=== PATIENT | female | born 1960 | race Asian ===

== ENCOUNTER 2021-01-13 09:07 | Inpatient (IN) | payer OTHER ==
[2021-01-13] MEDS ORDERED: ACETAMINOPHEN 1000 MG/100 ML BAG IVPB ONE (09:57)
[2021-01-13] MEDS ORDERED: SODIUM CHLORIDE 1,000 ML IV STA ×2 (09:57→16:21)
[2021-01-13] MEDS ORDERED: ACETAMINOPHEN INJECTION 100 ML IVPB ONE (10:05)
[2021-01-13 10:48] LABS: BASO % 0.3 % (0-2.0); EOS % 1.1 % (0-4.5); HEMATOCRIT 43.9 % (32.4-45.2); LYMPH % 28.9 % (8-40); MCH 30.8 pg (25.7-33.7); MCHC 34.2 g/dl (32.0-36.0); MEAN PLT VOLUME 8.1 fl (7.5-11.1); MONO % 6.3 % (3.8-10.2); NEUT % 63.4 % (42.8-82.8); PLATELET COUNT 136 10^3/uL (134-434); RBC 4.88 M/mm3 (3.60-5.2); RDW 12.6 % (11.6-15.6); WHITE BLOOD COUNT 7.8 K/mm3 (4.0-10.0)
[2021-01-13 11:07] LABS: ALBUMIN 4.3 g/dl (3.4-5.0); BLOOD UREA NITROGEN 15.4 mg/dL (7-18)
[2021-01-13 11:10] LABS: CREATININE 0.7 mg/dL (0.55-1.3)
[2021-01-13 11:11] LABS: BILIRUBIN,TOTAL 0.7 mg/dL (0.2-1); TOT PROT 7.4 g/dl (6.4-8.2)
[2021-01-13 11:22] LABS: PH,URINE 5.5 (5.0-8.0); URINE APPEARANCE CLEAR; URINE BILIRUBIN NEGATIVE (NEGATIVE); URINE COLOR YELLOW; URINE GLUCOSE (UA) 3+ (NEGATIVE); URINE KETONE NEGATIVE (NEGATIVE); URINE LEUK ESTERASE NEGATIVE (NEGATIVE); URINE NITRITE NEGATIVE (NEGATIVE); URINE PROTEIN NEGATIVE (NEGATIVE); URINE UROBILINOGEN 0.2 mg/dL (0.2-1.0)
[2021-01-13] MEDS ORDERED: morphine CARPU-JECT 4 MG/1 ML DISP.SYRIN IVPUSH ONE (14:46)
[2021-01-13] MEDS ORDERED: morphine SULFATE 4 MG/ML VIAL ONE (15:26)
[2021-01-13 16:37] LABS: INR 1.04 (0.83-1.09); PROTHROMBIN TIME (PATIENT) 11.7 SEC (9.7-13.0)
[2021-01-13 20:11] VITALS: BMI 22.8
[2021-01-13] MEDS ORDERED: PNEUMOC 13-VAL CONJ-DIP CRM/PF 0.5 ML DISP.SYRIN IM ONE (20:13)
[2021-01-13] MEDS: LACTATED RINGERS SOLUTION 1,000 ML IV SCH (20:49)
[2021-01-13] MEDS ORDERED: ROSUVASTATIN CA 20 MG TABLET (FP) PO SCH (22:00)
[2021-01-14] MEDS: PNEUMOCOCCAL 23 VACCINE 0.5 ML VIAL IM ONE ×2 (00:42→09:00)
[2021-01-14] MEDS ORDERED: PT OWN MED DRAWER 7, Y5N ONE (05:03)
[2021-01-14] MEDS ORDERED: CEFAZOLIN 2 GM in DEXTROSE 5%-WATER - 50 ML IVPB SCH (06:00)
[2021-01-14] MEDS: INSULIN SLIDING SCALE (NOVOLOG) 1 VIAL SQ SCH ×3 (06:20→17:20)
[2021-01-14] MEDS: LACTATED RINGERS SOLUTION 1,000 ML IV SCH (06:28)
[2021-01-14] MEDS ORDERED: LEVOTHYROXINE NA 75 MCG TABLET (FP) PO SCH (07:00)
[2021-01-14] MEDS ORDERED: CEFAZOLIN 2 GM in DEXTROSE 5%-WATER - 100 ML IVPB SCH (07:05)
[2021-01-14] MEDS ORDERED: BUPIVACAINE HCL/PF 0.5% (5MG/ML) 10 ML VIAL ONE (08:07)
[2021-01-14 08:49] LABS: HEMOGLOBIN 13.2 GM/dL (10.7-15.3); MCH 31.1 pg (25.7-33.7); MCHC 34.7 g/dl (32.0-36.0); MEAN CELL VOLUME 89.5 fl (80-96); MEAN PLT VOLUME 8.2 fl (7.5-11.1); PLATELET COUNT 110 10^3/uL (134-434); RBC 4.24 M/mm3 (3.60-5.2); RDW 12.4 % (11.6-15.6); WHITE BLOOD COUNT 5.4 K/mm3 (4.0-10.0)
[2021-01-14] MEDS ORDERED: ACETAMINOPHEN 1000 MG/100 ML BAG IVPB PRN ×2 (08:56→12:21)
[2021-01-14] MEDS ORDERED: ACETAMINOPHEN 325 MG TABLET (FP) PO PRN ×2 (08:56→12:21)
[2021-01-14 09:26] LABS: BLOOD UREA NITROGEN 9.9 mg/dL (7-18); CALCIUM 8.8 mg/dL (8.5-10.1); MAGNESIUM 2.1 mg/dL (1.8-2.4)
[2021-01-14 09:28] LABS: PHOSPHOROUS 3.8 mg/dL (2.5-4.9)
[2021-01-14 09:29] LABS: CREATININE 0.6 mg/dL (0.55-1.3)
[2021-01-14 09:30] LABS: BILIRUBIN,TOTAL 0.9 mg/dL (0.2-1); TOT PROT 6.1 g/dl (6.4-8.2)
[2021-01-14 09:33] LABS: ALBUMIN 3.4 g/dl (3.4-5.0)
[2021-01-14] MEDS ORDERED: PNEUMOCOCCAL 23 VACCINE 0.5 ML VIAL IM ONE (10:00)
[2021-01-14] MEDS ORDERED: ROCURONIUM BROMIDE 50 MG/5 ML SYRINGE ONE (10:15)
[2021-01-14] MEDS ORDERED: DEXAMETHASONE SOD PHOSPHATE 4 MG/1 ML VIAL ONE (10:15)
[2021-01-14] MEDS ORDERED: LIDOCAINE HCL/PF 2% SDV 5ML VIAL ONE (10:15)
[2021-01-14] MEDS ORDERED: MIDAZOLAM HCL 2 MG/2 ML SINGLE DOSE VIAL ONE (10:15)
[2021-01-14] MEDS ORDERED: PROPOFOL 20 ML ONE (10:15)
[2021-01-14] MEDS ORDERED: SUCCINYLCHOLINE CHLORIDE 200 MG/10 ML SYRINGE ONE (10:18)
[2021-01-14] MEDS ORDERED: ceFAZolin SODIUM 1 GM VIAL IVPB ONE ×2 (10:50→11:02)
[2021-01-14] MEDS ORDERED: BUPIVACAINE HCL/PF 0.5% (5MG/ML) 10 ML VIAL IJ ONE ×2 (11:28)
[2021-01-14] MEDS ORDERED: KETOROLAC TROMETHAMINE 30 MG/1 ML VIAL ONE (11:40)
[2021-01-14] MEDS ORDERED: NEOSTIGMINE METHYLSULFATE 0.5 MG/ML - 10 ML MDV ONE (11:43)
[2021-01-14] MEDS ORDERED: GLYCOPYRROLATE 0.2 MG/1 ML VIAL ONE (11:44)
[2021-01-14] MEDS ORDERED: DOCUSATE SODIUM 100 MG CAPSULE (FP) PO PRN (12:04)
[2021-01-14] MEDS ORDERED: oxyCODONE HCL 5 MG TABLET PO PRN ×2 (12:04)
[2021-01-14] MEDS ORDERED: LACTATED RINGERS SOLUTION 1,000 ML IV SCH (12:21)
[2021-01-14] MEDS ORDERED: ACETAMINOPHEN INJECTION 100 ML IVPB ONE (13:01)
[2021-01-14] MEDS ORDERED: ONDANSETRON 4 MG/2 ML VIAL IVPUSH PRN (13:09)
[2021-01-14] MEDS ORDERED: ROSUVASTATIN CA 20 MG TABLET (FP) PO SCH (22:00)
[2021-01-15] MEDS: INSULIN SLIDING SCALE (NOVOLOG) 1 VIAL SQ SCH ×2 (06:19→12:18)
[2021-01-15] MEDS ORDERED: LEVOTHYROXINE NA 75 MCG TABLET (FP) PO SCH (07:00)
[2021-01-15 08:55] LABS: HEMOGLOBIN 12.8 GM/dL (10.7-15.3); MCH 31.1 pg (25.7-33.7); MCHC 34.6 g/dl (32.0-36.0); MEAN CELL VOLUME 89.7 fl (80-96); MEAN PLT VOLUME 8.4 fl (7.5-11.1); PLATELET COUNT 118 10^3/uL (134-434); RBC 4.13 M/mm3 (3.60-5.2); RDW 12.7 % (11.6-15.6); WHITE BLOOD COUNT 7.4 K/mm3 (4.0-10.0)
[2021-01-15] MEDS ORDERED: ACETAMINOPHEN 1000 MG/100 ML BAG IVPB ONE ×2 (09:15→13:36)
[2021-01-15 09:27] LABS: CALCIUM 8.8 mg/dL (8.5-10.1)
[2021-01-15 09:28] LABS: ALBUMIN 3.3 g/dl (3.4-5.0)
[2021-01-15 09:29] LABS: CREATININE 0.8 mg/dL (0.55-1.3)
[2021-01-15 09:30] LABS: PHOSPHOROUS 4.1 mg/dL (2.5-4.9)
[2021-01-15 09:31] LABS: TOT PROT 5.9 g/dl (6.4-8.2)
[2021-01-15] MEDS ORDERED: ASPIRIN COATED 81 MG TABLET.EC PO SCH (10:00)
[2021-01-15] MEDS ORDERED: SIMETHICONE 80 MG TAB.CHEW (FP) PO ONE (10:15)
[2021-01-15] MEDS ORDERED: FAMOTIDINE 20 MG/50 ML IVPB 20 MG/50 ML MG IVPB ONE (10:15)
[2021-01-15] MEDS ORDERED: POLYETHYLENE GLYCOL (HEALTHYLAX) 3350 17 GM PACKET PO SCH (10:15)
[2021-01-15] MEDS ORDERED: PT OWN MED DRAWER 7, Y5N ONE (11:59)
[2021-01-15] MEDS ORDERED: INSULIN (NOVOLOG) ASPART 100 UNITS/ML 10ML VIAL ONE (12:14)
[2021-01-15] MEDS ORDERED: GLYCERIN 1 RECTAL SUPPOSITORY, ADULT RC ONE (14:45)
[2021-01-15 15:16] VITALS: BP 132/76; PULSE 86; TEMP 98.4
== END 2021-01-15 16:12 | disposition home or self-care (01) | DRG 263 ==
LOC: JER 09:07 → JERBED 14:49 → J7W 18:56
PROVIDERS: ADMIT Internal Medicine; ATTEND Internal Medicine
PROC: 0FT44ZZ Resection of Gallbladder, Percutaneous Endoscopic Approach (ICD-10-PCS; principal; 2021-01-14 11:00)
DX: K80.12 Calculus of gallbladder with acute and chronic cholecystitis without obstruction (principal); E11.9 Type 2 diabetes mellitus without complications; N28.1 Cyst of kidney, acquired; I10 Essential (primary) hypertension; E03.9 Hypothyroidism, unspecified; K80.00 Calculus of gallbladder with acute cholecystitis without obstruction; Z79.84 Long term (current) use of oral hypoglycemic drugs; Z79.4 Long term (current) use of insulin
CPT/HCPCS: 36415; 74018-TC-FY; 74176-TC; 74181-TC; 76705-TC; 80053; 81003; 82150; 82962; 83690; 83735; 84100; 85025; 85027; 85610; 86850; 86900; 86901; 87086; 88304-TC; 90732; 93005; 93010; 94010; 94760; 94761; 97116-GP; 97161-GP; 99285-25; C9803; G0009; J0131; U0003; U0005

== ENCOUNTER 2021-02-16 16:59 | Emergency (ER) | payer OTHER ==
[2021-02-16 17:27] VITALS: BP 143/63; PULSE 90; TEMP 97.8; BMI 23.6
[2021-02-16] MEDS ORDERED: ACETAMINOPHEN 1000 MG/100 ML BAG IVPB ONE (21:59)
[2021-02-16] MEDS ORDERED: ONDANSETRON 4 MG/2 ML VIAL IVPUSH ONE (21:59)
[2021-02-16] MEDS ORDERED: ACETAMINOPHEN INJECTION 100 ML IVPB ONE (22:30)
[2021-02-16] MEDS ORDERED: ONDANSETRON 4 MG/2 ML VIAL ONE (22:30)
[2021-02-16 22:48] LABS: BASO % 0.4 % (0-2.0); EOS % 1.4 % (0-4.5); HEMATOCRIT 40.3 % (32.4-45.2); HEMOGLOBIN 13.7 GM/dL (10.7-15.3); LYMPH % 34.6 % (8-40); MCH 30.5 pg (25.7-33.7); MCHC 34.1 g/dl (32.0-36.0); MEAN CELL VOLUME 89.3 fl (80-96); MEAN PLT VOLUME 9.1 fl (7.5-11.1); MONO % 9.5 % (3.8-10.2); NEUT % 54.1 % (42.8-82.8); PLATELET COUNT 169 10^3/uL (134-434); RBC 4.51 M/mm3 (3.60-5.2); RDW 13.2 % (11.6-15.6); WHITE BLOOD COUNT 6.2 K/mm3 (4.0-10.0)
[2021-02-16 23:00] LABS: CALCIUM 8.8 mg/dL (8.5-10.1)
[2021-02-16 23:01] LABS: ALBUMIN 3.8 g/dl (3.4-5.0); BLOOD UREA NITROGEN 20.5 mg/dL (7-18); MAGNESIUM 1.9 mg/dL (1.8-2.4)
[2021-02-16 23:03] LABS: CREATININE 0.7 mg/dL (0.55-1.3)
[2021-02-16 23:05] LABS: URINE APPEARANCE CLEAR; URINE BILIRUBIN NEGATIVE (NEGATIVE); URINE COLOR YELLOW; URINE GLUCOSE (UA) 3+ (NEGATIVE); URINE KETONE NEGATIVE (NEGATIVE); URINE LEUK ESTERASE NEGATIVE (NEGATIVE); URINE NITRITE NEGATIVE (NEGATIVE); URINE PROTEIN NEGATIVE (NEGATIVE); URINE UROBILINOGEN 0.2 mg/dL (0.2-1.0)
[2021-02-16 23:05] LABS: BILIRUBIN,TOTAL 0.6 mg/dL (0.2-1); TOT PROT 7.2 g/dl (6.4-8.2)
[2021-02-17] MEDS ORDERED: KETOROLAC TROMETHAMINE 15 MG/ML VIAL IVPUSH ONE (01:56)
[2021-02-17] MEDS ORDERED: KETOROLAC TROMETHAMINE 15 MG/ML VIAL ONE (02:02)
== END 2021-02-17 02:40 | disposition home or self-care (01) ==
LOC: JER 16:59
PROC: 3E033NZ Introduction of Analgesics, Hypnotics, Sedatives into Peripheral Vein, Percutaneous Approach (ICD-10-PCS; principal; 2021-02-16)
PROC: 3E033GC Introduction of Other Therapeutic Substance into Peripheral Vein, Percutaneous Approach (ICD-10-PCS; 2021-02-16)
PROC: 3E0333Z Introduction of Anti-inflammatory into Peripheral Vein, Percutaneous Approach (ICD-10-PCS; 2021-02-17)
DX: R10.9 Unspecified abdominal pain (principal)
CPT/HCPCS: 36415; 74177-TC; 80053; 81003; 83690; 83735; 85025; 87077; 87086; 99285-25; C9803; J0131; Q9967; U0003; U0005

== ENCOUNTER 2021-10-09 21:23 | Observation (INO) | payer OTHER ==
[2021-10-09 22:51] LABS: BASO % 0.3 % (0-2.0); EOS % 1.2 % (0-4.5); HEMATOCRIT 44.1 % (32.4-45.2); HEMOGLOBIN 15.1 GM/dL (10.7-15.3); LYMPH % 32.7 % (8-40); MCH 30.2 pg (25.7-33.7); MCHC 34.2 g/dl (32.0-36.0); MEAN CELL VOLUME 88.1 fl (80-96); MEAN PLT VOLUME 8.1 fl (7.5-11.1); NEUT % 56.8 % (42.8-82.8); PLATELET COUNT 162 10^3/uL (134-434); RDW 13.4 % (11.6-15.6); WHITE BLOOD COUNT 8.3 K/mm3 (4.0-10.0)
[2021-10-09 22:52] LABS: INR 0.97 (0.83-1.09); PROTHROMBIN TIME (PATIENT) 11.1 SEC (9.7-13.0)
[2021-10-09 22:54] LABS: ACTIVATED PTT 32.3 SECONDS (25.2-36.5)
[2021-10-09 23:06] LABS: CALCIUM 9.3 mg/dL (8.5-10.1)
[2021-10-09 23:07] LABS: ALBUMIN 4.1 g/dl (3.4-5.0); BLOOD UREA NITROGEN 10.8 mg/dL (7-18)
[2021-10-09] MEDS ORDERED: MECLIZINE HCL 25 MG TABLET (FP) PO ONE (23:07)
[2021-10-09 23:09] LABS: CREATININE 0.7 mg/dL (0.55-1.3)
[2021-10-09 23:11] LABS: TOT PROT 7.4 g/dl (6.4-8.2)
[2021-10-09 23:12] LABS: BILIRUBIN,TOTAL 0.7 mg/dL (0.2-1)
[2021-10-09] MEDS ORDERED: MECLIZINE HCL 25 MG TABLET (FP) ONE (23:16)
[2021-10-09 23:19] LABS: LACTIC ACID 4.2 mmol/L (0.4-2.0)
[2021-10-09] MEDS ORDERED: SODIUM CHLORIDE 0.9% 500 ML INFUS.BAG IV ONE (23:22)
[2021-10-10] MEDS ORDERED: SODIUM CHLORIDE 0.9% 500 ML INFUS.BAG IV ONE (00:16)
[2021-10-10 00:48] LABS: EPI CELLS 1 /uL (0-25.1); HYALINE CASTS 0 /uL (0-3.1); URINE APPEARANCE CLEAR; URINE BACTERIA 42 /uL (0-1359); URINE BILIRUBIN NEGATIVE (NEGATIVE); URINE COLOR YELLOW; URINE GLUCOSE (UA) 1+ (NEGATIVE); URINE KETONE NEGATIVE (NEGATIVE); URINE LEUK ESTERASE TRACE (NEGATIVE); URINE NITRITE NEGATIVE (NEGATIVE); URINE PROTEIN NEGATIVE (NEGATIVE); URINE RBC 8 /uL (0-23.9); URINE UROBILINOGEN 0.2 mg/dL (0.2-1.0); URINE WBC 7 /uL (0-25.8)
[2021-10-10] MEDS ORDERED: ASPIRIN 81 MG CHEWABLE TABLETS PO ONE (00:56)
[2021-10-10] MEDS ORDERED: ASPIRIN 81 MG CHEWABLE TABLETS ONE ×2 (01:36→08:50)
[2021-10-10] MEDS ORDERED: ATORVASTATIN CA 40 MG TABLET (FP) PO ONE (01:46)
[2021-10-10] MEDS ORDERED: MECLIZINE HCL 25 MG TABLET (FP) PO PRN (02:15)
[2021-10-10] MEDS ORDERED: SODIUM CHLORIDE 1,000 ML IV SCH (02:15)
[2021-10-10] MEDS ORDERED: ACETAMINOPHEN 1000 MG/100 ML BAG IVPB PRN (02:39)
[2021-10-10] MEDS ORDERED: ATORVASTATIN CA 40 MG TABLET (FP) ONE (03:08)
[2021-10-10 04:14] LABS: CHOLESTEROL 102 mg/dL (50-200); TRIGLYCERIDES 149 mg/dL (0-150)
[2021-10-10 04:15] LABS: LDL CHOLESTEROL (ONLY SJRH) 33 mg/dL (5-100)
[2021-10-10 04:17] LABS: HDL CHOLESTEROL 59 mg/dL (40-60)
[2021-10-10] MEDS: LACTATED RINGERS SOLUTION 1,000 ML/1,000 ML INFUS.BAG IV SCH (04:23)
[2021-10-10 05:55] LABS: BASO % 0.3 % (0-2.0); EOS % 1.7 % (0-4.5); HEMATOCRIT 41.1 % (32.4-45.2); HEMOGLOBIN 13.7 GM/dL (10.7-15.3); LYMPH % 36.5 % (8-40); MCH 29.6 pg (25.7-33.7); MCHC 33.4 g/dl (32.0-36.0); MEAN CELL VOLUME 88.7 fl (80-96); MEAN PLT VOLUME 8.2 fl (7.5-11.1); MONO % 8.8 % (3.8-10.2); NEUT % 52.7 % (42.8-82.8); PLATELET COUNT 145 10^3/uL (134-434); RBC 4.63 M/mm3 (3.60-5.2); WHITE BLOOD COUNT 7.5 K/mm3 (4.0-10.0)
[2021-10-10 06:25] LABS: ALBUMIN 3.5 g/dl (3.4-5.0); BLOOD UREA NITROGEN 8.7 mg/dL (7-18); MAGNESIUM 2.1 mg/dL (1.8-2.4)
[2021-10-10 06:28] LABS: CREATININE 0.6 mg/dL (0.55-1.3)
[2021-10-10 06:30] LABS: PHOSPHOROUS 3.7 mg/dL (2.5-4.9)
[2021-10-10 06:31] LABS: BILIRUBIN,TOTAL 0.6 mg/dL (0.2-1); TOT PROT 6.2 g/dl (6.4-8.2)
[2021-10-10] MEDS ORDERED: LEVOTHYROXINE NA 88 MCG TABLET (FP) ONE (08:50)
[2021-10-10] MEDS ORDERED: MAGNESIUM OXIDE 400 MG TABLET (FP) ONE (08:50)
[2021-10-10] MEDS ORDERED: ENOXAPARIN NA (PORCINE) 40 MG/0.4 ML DISP.SYRIN SQ ONE (08:50)
[2021-10-10] MEDS ORDERED: LEVOTHYROXINE NA 75 MCG TABLET (FP) ONE (08:55)
[2021-10-10] MEDS: LEVOTHYROXINE NA 75 MCG TABLET (FP) PO SCH (09:00)
[2021-10-10] MEDS: INSULIN SLIDING SCALE (NOVOLOG) 1 VIAL SQ SCH ×4 (09:10→21:28)
[2021-10-10] MEDS ORDERED: MECLIZINE HCL 25 MG TABLET (FP) ONE (09:11)
[2021-10-10] MEDS: MAGNESIUM OXIDE 400 MG TABLET (FP) PO SCH (10:00)
[2021-10-10] MEDS: ASPIRIN 81 MG CHEWABLE TABLETS PO SCH (10:00)
[2021-10-10] MEDS: ENOXAPARIN NA (PORCINE) 40 MG/0.4 ML DISP.SYRIN SQ SCH (10:46)
[2021-10-10 16:25] VITALS: BMI 24.3
[2021-10-10] MEDS ORDERED: DOCUSATE SODIUM 100 MG CAPSULE (FP) PO PRN (17:12)
[2021-10-10] MEDS: ROSUVASTATIN CA 20 MG TABLET PO SCH (22:58)
[2021-10-11] MEDS: LACTATED RINGERS SOLUTION 1,000 ML/1,000 ML INFUS.BAG IV SCH (07:20)
[2021-10-11] MEDS: INSULIN SLIDING SCALE (NOVOLOG) 1 VIAL SQ SCH ×4 (07:21→21:28)
[2021-10-11] MEDS: LEVOTHYROXINE NA 75 MCG TABLET (FP) PO SCH (07:21)
[2021-10-11 07:33] LABS: BASO % 0.7 % (0-2.0); EOS % 5.1 % (0-4.5); HEMATOCRIT 43.6 % (32.4-45.2); HEMOGLOBIN 14.6 GM/dL (10.7-15.3); LYMPH % 36.2 % (8-40); MCH 29.7 pg (25.7-33.7); MCHC 33.5 g/dl (32.0-36.0); MEAN CELL VOLUME 88.8 fl (80-96); MEAN PLT VOLUME 8.3 fl (7.5-11.1); MONO % 9.7 % (3.8-10.2); NEUT % 48.3 % (42.8-82.8); PLATELET COUNT 152 10^3/uL (134-434); RBC 4.91 M/mm3 (3.60-5.2); RDW 13.1 % (11.6-15.6); WHITE BLOOD COUNT 5.7 K/mm3 (4.0-10.0)
[2021-10-11 08:02] LABS: CALCIUM 9.1 mg/dL (8.5-10.1)
[2021-10-11 08:03] LABS: ALBUMIN 3.8 g/dl (3.4-5.0); BLOOD UREA NITROGEN 9.5 mg/dL (7-18); MAGNESIUM 2.5 mg/dL (1.8-2.4)
[2021-10-11 08:06] LABS: CREATININE 0.7 mg/dL (0.55-1.3)
[2021-10-11 08:08] LABS: BILIRUBIN,TOTAL 0.9 mg/dL (0.2-1); TOT PROT 6.6 g/dl (6.4-8.2)
[2021-10-11] MEDS: ASPIRIN 81 MG CHEWABLE TABLETS PO SCH (09:36)
[2021-10-11] MEDS: MAGNESIUM OXIDE 400 MG TABLET (FP) PO SCH (09:36)
[2021-10-11] MEDS: ENOXAPARIN NA (PORCINE) 40 MG/0.4 ML DISP.SYRIN SQ SCH (09:36)
[2021-10-11] MEDS: ROSUVASTATIN CA 20 MG TABLET PO SCH (21:28)
[2021-10-12] MEDS ORDERED: RAPID SEQUENCE INTUBATION KIT NR ONE (01:26)
[2021-10-12] MEDS: LEVOTHYROXINE NA 75 MCG TABLET (FP) PO SCH (06:49)
[2021-10-12] MEDS: INSULIN SLIDING SCALE (NOVOLOG) 1 VIAL SQ SCH ×2 (06:49→11:39)
[2021-10-12 07:17] LABS: BASO % 0.5 % (0-2.0); HEMATOCRIT 42.7 % (32.4-45.2); HEMOGLOBIN 14.3 GM/dL (10.7-15.3); LYMPH % 39.5 % (8-40); MCH 29.6 pg (25.7-33.7); MCHC 33.4 g/dl (32.0-36.0); MEAN CELL VOLUME 88.6 fl (80-96); MEAN PLT VOLUME 8.2 fl (7.5-11.1); MONO % 8.7 % (3.8-10.2); NEUT % 47.3 % (42.8-82.8); PLATELET COUNT 134 10^3/uL (134-434); RBC 4.82 M/mm3 (3.60-5.2); WHITE BLOOD COUNT 4.8 K/mm3 (4.0-10.0)
[2021-10-12 07:35] LABS: CALCIUM 8.9 mg/dL (8.5-10.1)
[2021-10-12 07:36] LABS: ALBUMIN 3.6 g/dl (3.4-5.0); BLOOD UREA NITROGEN 15.8 mg/dL (7-18); MAGNESIUM 2.3 mg/dL (1.8-2.4)
[2021-10-12 07:39] LABS: CREATININE 0.7 mg/dL (0.55-1.3)
[2021-10-12 07:40] LABS: BILIRUBIN,TOTAL 0.6 mg/dL (0.2-1); TOT PROT 6.4 g/dl (6.4-8.2)
[2021-10-12 08:53] VITALS: BP 105/71; PULSE 90; RESP 16; TEMP 98.2
[2021-10-12] MEDS: MAGNESIUM OXIDE 400 MG TABLET (FP) PO SCH (11:38)
[2021-10-12] MEDS: ENOXAPARIN NA (PORCINE) 40 MG/0.4 ML DISP.SYRIN SQ SCH (11:38)
[2021-10-12] MEDS: ASPIRIN 81 MG CHEWABLE TABLETS PO SCH (11:38)
== END 2021-10-12 12:15 | disposition home or self-care (01) ==
LOC: JER 21:23 → JERBED 10-10 00:17 → INTOOBSV 10-10 00:17 → J2W 10-10 15:47
PROVIDERS: ADMIT Internal Medicine; ATTEND Nurse Practitioner Family
PROC: 3E033NZ Introduction of Analgesics, Hypnotics, Sedatives into Peripheral Vein, Percutaneous Approach (ICD-10-PCS; principal; 2021-10-10)
PROC: 3E023GC Introduction of Other Therapeutic Substance into Muscle, Percutaneous Approach (ICD-10-PCS; 2021-10-10)
PROC: 3E0337Z Introduction of Electrolytic and Water Balance Substance into Peripheral Vein, Percutaneous Approach (ICD-10-PCS; 2021-10-10)
DX: G45.9 Transient cerebral ischemic attack, unspecified (principal); E87.2 Acidosis; R20.0 Anesthesia of skin; G51.0 Bell's palsy; E11.9 Type 2 diabetes mellitus without complications; I10 Essential (primary) hypertension; E03.9 Hypothyroidism, unspecified; G72.9 Myopathy, unspecified; R94.31 Abnormal electrocardiogram [ECG] [EKG]; R07.89 Other chest pain; R77.8 Other specified abnormalities of plasma proteins; G95.89 Other specified diseases of spinal cord; R10.9 Unspecified abdominal pain; G81.90 Hemiplegia, unspecified affecting unspecified side; Z29.8 Encounter for other specified prophylactic measures; Z86.73 Personal history of transient ischemic attack (TIA), and cerebral infarction without residual deficits
CPT/HCPCS: 36415; 70450-TC; 70551-TC; 71045-TC-FY; 76700-TC; 80053; 80061; 81003; 82962; 83036; 83605; 83735; 84100; 84443; 84484; 85025; 85610; 85730; 87077; 87086; 93005; 93010; 93306-TC; 93880-TC; 97116-GP; 97161-GP; 99285-25; C9803-CS; G0378; U0003; U0005

== ENCOUNTER 2024-05-13 08:15 | Inpatient (IN) | payer OTHER ==
[2024-05-13 08:49] VITALS: BMI 22.3
[2024-05-13 09:11] LABS: INR 1.02 (0.83-1.09); PROTHROMBIN TIME (PATIENT) 11.1 SEC (9.7-13.0)
[2024-05-13 09:13] LABS: ACTIVATED PTT 30.3 SECONDS (25.2-36.5)
[2024-05-13 09:14] LABS: ABSOLUTE IMMATURE GRANULOCYTES 0.02 x10^3/uL (0.0-0.031); BASOPHILS # 0.02 x10^3/uL (0.01-0.08); EOSINOPHIL % 0.5 % (0.7-5.8); EOSINOPHILS # 0.04 x10^3/uL (0.04-0.36); HEMATOCRIT 43.3 % (34.1-44.9); HEMOGLOBIN 14.6 g/dL (11.2-15.7); MCHC 33.7 g/dl (32.2-35.5); MEAN CELL VOLUME 89.1 fl (79.4-94.8); MONOCYTE # 0.47 x10^3/uL (0.24-0.86); MONOCYTE % 5.5 % (4.7-12.5); PLATELET COUNT 114 x10^3/uL (182-369); RDW 12.5 % (12.4-16.4)
[2024-05-13] MEDS: SODIUM CHLORIDE 1,000 ML IV STA (09:25)
[2024-05-13 09:32] LABS: POTASSIUM 4.2 mmol/L (3.5-5.1)
[2024-05-13 09:34] LABS: CALCIUM 8.8 mg/dL (8.5-10.1)
[2024-05-13 09:35] LABS: ALBUMIN 4.1 g/dl (3.4-5.0)
[2024-05-13] MEDS ORDERED: morphine SULFATE 4 MG/ML VIAL ONE ×2 (09:35→10:38)
[2024-05-13] MEDS ORDERED: ONDANSETRON 4 MG/2 ML VIAL ONE (09:36)
[2024-05-13 09:38] LABS: CREATININE 0.8 mg/dL (0.55-1.3)
[2024-05-13 09:40] LABS: BILIRUBIN,TOTAL 0.9 mg/dL (0.2-1)
[2024-05-13] MEDS: morphine SULFATE 4 MG/ML VIAL IVPUSH ONE (09:49)
[2024-05-13] MEDS: ONDANSETRON 4 MG/2 ML VIAL IVPUSH ONE (09:54)
[2024-05-13] MEDS: morphine CARPU-JECT 4 MG/1 ML DISP.SYRIN IVPUSH ONE (10:44)
[2024-05-13] MEDS: ROPIVACAINE HCL 0.5% 30ML VIAL IM ONE (13:41)
[2024-05-13 13:47] LABS: PH,URINE 7.5 (5.0-8.0); URINE APPEARANCE CLEAR; URINE BILIRUBIN NEGATIVE (NEGATIVE); URINE COLOR YELLOW; URINE GLUCOSE (UA) 3+ (NEGATIVE); URINE KETONE NEGATIVE (NEGATIVE); URINE LEUK ESTERASE NEGATIVE (NEGATIVE); URINE NITRITE NEGATIVE (NEGATIVE); URINE PROTEIN NEGATIVE (NEGATIVE); URINE UROBILINOGEN 0.2 mg/dL (0.2-1.0)
[2024-05-13] MEDS: traMADol HCL 50 MG TABLET PO PRN (16:47)
[2024-05-13] MEDS: ACETAMINOPHEN 1000 MG/100 ML BAG IVPB PRN (16:47)
[2024-05-13] MEDS ORDERED: MIDAZOLAM HCL 2 MG/2 ML SINGLE DOSE VIAL ONE (17:41)
[2024-05-13] MEDS ORDERED: BUPIVACAINE HCL/PF 0.5% (5MG/ML) 10 ML VIAL ONE (17:41)
[2024-05-13] MEDS ORDERED: PROPOFOL 20 ML ONE (18:03)
[2024-05-13] MEDS ORDERED: ceFAZolin SODIUM 1 GM VIAL ONE (18:04)
[2024-05-13] MEDS: ceFAZolin SODIUM 1 GM VIAL IVPB ONE (18:06)
[2024-05-13] MEDS ORDERED: oxyCODONE HCL 5 MG TABLET PO PRN ×2 (18:15)
[2024-05-13] MEDS ORDERED: ONDANSETRON 4 MG/2 ML VIAL IVPUSH PRN ×2 (18:15→19:25)
[2024-05-13] MEDS ORDERED: POLYETHYLENE GLYCOL (HEALTHYLAX) 3350 17 GM PACKET PO PRN ×2 (18:26→19:25)
[2024-05-13] MEDS ORDERED: TRANEXAMIC ACID 1000 MG/10 ML VIAL ONE (19:00)
[2024-05-13] MEDS: LACTATED RINGERS SOLUTION 1,000 ML IV SCH ×2 (19:10→22:48)
[2024-05-13] MEDS ORDERED: ROSUVASTATIN CA 20 MG TABLET PO SCH (22:00)
[2024-05-13] MEDS: ROSUVASTATIN CA 20 MG TABLET PO SCH (22:48)
[2024-05-14] MEDS ORDERED: ACETAMINOPHEN 1000 MG/100 ML BAG IVPB SCH
[2024-05-14] MEDS: ACETAMINOPHEN 1000 MG/100 ML BAG IVPB SCH (00:57)
[2024-05-14] MEDS: CEFAZOLIN 1 GM/D5W 1 GM/50 ML BAG IVPB SCH (02:54)
[2024-05-14] MEDS: LEVOTHYROXINE NA 75 MCG TABLET (FP) PO SCH (06:26)
[2024-05-14 06:56] LABS: HEMATOCRIT 34.9 % (34.1-44.9); HEMOGLOBIN 11.5 g/dL (11.2-15.7); MEAN CELL VOLUME 90.9 fl (79.4-94.8); PLATELET COUNT 85 x10^3/uL (182-369); RDW 12.5 % (12.4-16.4)
[2024-05-14] MEDS ORDERED: LEVOTHYROXINE NA 75 MCG TABLET (FP) PO SCH (07:00)
[2024-05-14 07:13] LABS: POTASSIUM 4.1 mmol/L (3.5-5.1)
[2024-05-14 07:16] LABS: CALCIUM 7.6 mg/dL (8.5-10.1)
[2024-05-14 07:17] LABS: BLOOD UREA NITROGEN 13.4 mg/dL (7-18)
[2024-05-14 07:20] LABS: CREATININE 0.6 mg/dL (0.55-1.3); PHOSPHOROUS 3.8 mg/dL (2.5-4.9)
[2024-05-14] MEDS: CHOLECALCIFEROL (VIT D3) 1,000 UNIT (25 MCG) TABLET PO SCH (09:58)
[2024-05-14] MEDS: ENOXAPARIN NA (PORCINE) 40 MG/0.4 ML DISP.SYRIN SQ SCH (09:59)
[2024-05-14] MEDS: HYDROmorphone HCL CARPU-JECT 2 MG/1 ML DISP.SYRIN IVPUSH ONE (11:42)
[2024-05-14 13:15] LABS: BILIRUBIN,TOTAL 1.1 mg/dL (0.2-1)
[2024-05-14] MEDS: ACETAMINOPHEN 500 MG TABLET (FP) PO SCH (15:18)
[2024-05-14] MEDS: oxyCODONE HCL 5 MG TABLET PO PRN (21:06)
[2024-05-14] MEDS: INSULIN GLARGINE (LANTUS) 100 UNITS/ML UNITS SQ SCH (21:07)
[2024-05-14] MEDS ORDERED: INSULIN GLARGINE (LANTUS) 100 UNITS/ML UNITS SQ SCH (22:00)
[2024-05-15] MEDS ORDERED: ACETAMINOPHEN 500 MG TABLET (FP) PO PRN ×2 (06:00→14:00)
[2024-05-15 07:56] LABS: HEMATOCRIT 33.1 % (34.1-44.9); HEMOGLOBIN 10.9 g/dL (11.2-15.7); MCHC 32.9 g/dl (32.2-35.5); MEAN CELL VOLUME 92.5 fl (79.4-94.8); MEAN PLT VOLUME 9.8 fl (9.4-12.3); PLATELET COUNT 78 x10^3/uL (182-369); RDW 12.2 % (12.4-16.4)
[2024-05-15 08:15] LABS: POTASSIUM 4.3 mmol/L (3.5-5.1)
[2024-05-15 08:43] LABS: CALCIUM 7.6 mg/dL (8.5-10.1)
[2024-05-15 08:44] LABS: BLOOD UREA NITROGEN 13.2 mg/dL (7-18); MAGNESIUM 2.2 mg/dL (1.8-2.4)
[2024-05-15 08:47] LABS: CREATININE 0.5 mg/dL (0.55-1.3)
[2024-05-15 08:48] LABS: BILIRUBIN,TOTAL 0.9 mg/dL (0.2-1); TOT PROT 5.2 g/dl (6.4-8.2)
[2024-05-15 09:20] LABS: ALBUMIN 3.1 g/dl (3.4-5.0)
[2024-05-16 06:56] LABS: POTASSIUM 4.1 mmol/L (3.5-5.1)
[2024-05-16 07:00] LABS: CALCIUM 7.5 mg/dL (8.5-10.1)
[2024-05-16 07:01] LABS: ALBUMIN 3.2 g/dl (3.4-5.0); BLOOD UREA NITROGEN 18.4 mg/dL (7-18)
[2024-05-16 07:04] LABS: CREATININE 0.6 mg/dL (0.55-1.3)
[2024-05-16 07:06] LABS: TOT PROT 5.6 g/dl (6.4-8.2)
[2024-05-16 07:55] LABS: HEMATOCRIT 32.5 % (34.1-44.9); HEMOGLOBIN 10.9 g/dL (11.2-15.7); MCHC 33.5 g/dl (32.2-35.5); PLATELET COUNT 85 x10^3/uL (182-369); RDW 12.1 % (12.4-16.4)
[2024-05-16] MEDS: HYDROmorphone HCL CARPU-JECT 2 MG/1 ML DISP.SYRIN IVPUSH PRN (10:42)
[2024-05-16] MEDS: ACETAMINOPHEN 325 MG TABLET (FP) PO SCH (18:39)
[2024-05-17 07:54] LABS: HEMATOCRIT 32.1 % (34.1-44.9); HEMOGLOBIN 10.8 g/dL (11.2-15.7); MCHC 33.6 g/dl (32.2-35.5); MEAN CELL VOLUME 88.4 fl (79.4-94.8); MEAN PLT VOLUME 10.2 fl (9.4-12.3); PLATELET COUNT 95 x10^3/uL (182-369); RDW 12.4 % (12.4-16.4)
[2024-05-17 08:05] LABS: POTASSIUM 3.9 mmol/L (3.5-5.1)
[2024-05-17 08:08] LABS: CALCIUM 8.4 mg/dL (8.5-10.1)
[2024-05-17 08:09] LABS: ALBUMIN 3.3 g/dl (3.4-5.0); BLOOD UREA NITROGEN 21.4 mg/dL (7-18); MAGNESIUM 2.2 mg/dL (1.8-2.4)
[2024-05-17 08:12] LABS: CREATININE 0.5 mg/dL (0.55-1.3); PHOSPHOROUS 3.4 mg/dL (2.5-4.9)
[2024-05-17 08:13] LABS: BILIRUBIN,TOTAL 0.9 mg/dL (0.2-1)
[2024-05-17 08:14] LABS: TOT PROT 5.9 g/dl (6.4-8.2)
[2024-05-17] MEDS ORDERED: HYDROmorphone HCL CARPU-JECT 2 MG/1 ML DISP.SYRIN IVPUSH PRN (12:58)
[2024-05-17] MEDS ORDERED: POLYETHYLENE GLYCOL (HEALTHYLAX) 3350 17 GM PACKET PO PRN (12:58)
[2024-05-17] MEDS: GABAPENTIN 100 MG CAPSULE PO SCH (14:08)
[2024-05-17] MEDS: oxyCODONE HCL 5 MG TABLET PO PRN (17:14)
[2024-05-17] MEDS: CELECOXIB 200 MG CAPSULE PO ONE (17:15)
[2024-05-17] MEDS: ACETAMINOPHEN 325 MG TABLET (FP) PO SCH (18:41)
[2024-05-17] MEDS: ROSUVASTATIN CA 20 MG TABLET PO SCH (21:20)
[2024-05-17] MEDS: INSULIN GLARGINE (LANTUS) 100 UNITS/ML UNITS SQ SCH (21:36)
[2024-05-17] MEDS ORDERED: NAPROXEN 500 MG TABLET PO SCH (22:00)
[2024-05-18] MEDS: LEVOTHYROXINE NA 75 MCG TABLET (FP) PO SCH (06:19)
[2024-05-18] MEDS: CHOLECALCIFEROL (VIT D3) 1,000 UNIT (25 MCG) TABLET PO SCH (09:48)
[2024-05-18] MEDS: ENOXAPARIN NA (PORCINE) 40 MG/0.4 ML DISP.SYRIN SQ SCH (09:49)
[2024-05-18] MEDS: FAMOTIDINE 20 MG TABLET PO SCH (09:50)
[2024-05-18] MEDS: CELECOXIB 200 MG CAPSULE PO SCH (09:50)
[2024-05-18] MEDS: LIDOCAINE 4% PATCH TP SCH (11:49)
[2024-05-18] MEDS: GABAPENTIN 100 MG CAPSULE PO SCH (13:54)
[2024-05-18] MEDS: LIDOCAINE PATCH REMOVAL MC SCH (21:18)
[2024-05-18] MEDS ORDERED: LIDOCAINE PATCH REMOVAL MC SCH (22:00)
[2024-05-19] MEDS: oxyCODONE HCL 5 MG TABLET PO PRN (06:38)
[2024-05-19 08:51] LABS: ABSOLUTE IMMATURE GRANULOCYTES 0.01 x10^3/uL (0.0-0.031); BASOPHILS # 0.03 x10^3/uL (0.01-0.08); EOSINOPHIL % 3.8 % (0.7-5.8); EOSINOPHILS # 0.18 x10^3/uL (0.04-0.36); HEMATOCRIT 28.6 % (34.1-44.9); HEMOGLOBIN 9.6 g/dL (11.2-15.7); MCHC 33.6 g/dl (32.2-35.5); MEAN CELL VOLUME 89.1 fl (79.4-94.8); MEAN PLT VOLUME 9.6 fl (9.4-12.3); MONOCYTE # 0.33 x10^3/uL (0.24-0.86); MONOCYTE % 6.9 % (4.7-12.5); PLATELET COUNT 101 x10^3/uL (182-369); RDW 12.9 % (12.4-16.4)
[2024-05-20] MEDS ORDERED: INSULIN GLARGINE (LANTUS) 100 UNITS/ML UNITS SQ ONE (07:55)
[2024-05-20 09:16] LABS: ABSOLUTE IMMATURE GRANULOCYTES 0.04 x10^3/uL (0.0-0.031); BASOPHILS # 0.02 x10^3/uL (0.01-0.08); EOSINOPHIL % 2.9 % (0.7-5.8); EOSINOPHILS # 0.16 x10^3/uL (0.04-0.36); HEMATOCRIT 28.9 % (34.1-44.9); HEMOGLOBIN 9.5 g/dL (11.2-15.7); MCHC 32.9 g/dl (32.2-35.5); MEAN CELL VOLUME 90.6 fl (79.4-94.8); MEAN PLT VOLUME 9.7 fl (9.4-12.3); MONOCYTE # 0.43 x10^3/uL (0.24-0.86); MONOCYTE % 7.7 % (4.7-12.5); PLATELET COUNT 109 x10^3/uL (182-369); RDW 13.2 % (12.4-16.4)
[2024-05-20] MEDS: GABAPENTIN 100 MG CAPSULE PO SCH (13:17)
[2024-05-20] MEDS: NAPROXEN 500 MG TABLET PO ONE (20:11)
[2024-05-22 10:07] LABS: HEMATOCRIT 33.7 % (34.1-44.9); HEMOGLOBIN 10.6 g/dL (11.2-15.7); MCHC 31.5 g/dl (32.2-35.5); MEAN CELL VOLUME 93.9 fl (79.4-94.8); MEAN PLT VOLUME 9.5 fl (9.4-12.3); PLATELET COUNT 155 x10^3/uL (182-369)
[2024-05-22 10:32] LABS: POTASSIUM 4.4 mmol/L (3.5-5.1)
[2024-05-22 10:38] LABS: CALCIUM 8.9 mg/dL (8.5-10.1)
[2024-05-22 10:42] LABS: CREATININE 0.7 mg/dL (0.55-1.3)
[2024-05-22 14:44] VITALS: RESP 18
[2024-05-22] MEDS: INSULIN ASPART SLIDING SCALE (NOVOLOG) 1 VIAL SQ SCH (16:50)
[2024-05-22] MEDS ORDERED: INSULIN GLARGINE (LANTUS) 100 UNITS/ML UNITS SQ ONE (20:55)
[2024-05-22] MEDS: INSULIN GLARGINE (LANTUS) 100 UNITS/ML UNITS SQ SCH (21:09)
[2024-05-23 04:28] VITALS: TEMP 98.1
[2024-05-23 09:07] LABS: BASOPHILS # 0.03 x10^3/uL (0.01-0.08); EOSINOPHIL % 3.5 % (0.7-5.8); EOSINOPHILS # 0.21 x10^3/uL (0.04-0.36); HEMATOCRIT 33.5 % (34.1-44.9); HEMOGLOBIN 10.9 g/dL (11.2-15.7); MCHC 32.5 g/dl (32.2-35.5); MEAN CELL VOLUME 92.8 fl (79.4-94.8); MEAN PLT VOLUME 9.4 fl (9.4-12.3); MONOCYTE # 0.58 x10^3/uL (0.24-0.86); MONOCYTE % 9.6 % (4.7-12.5); PLATELET COUNT 183 x10^3/uL (182-369); RDW 14.4 % (12.4-16.4)
[2024-05-23] MEDS: ENOXAPARIN NA (PORCINE) 40 MG/0.4 ML DISP.SYRIN SQ SCH (09:26)
[2024-05-23] MEDS: EMPAGLIFLOZIN (JARDIANCE) 25 MG TABLET PO SCH (09:28)
[2024-05-23] MEDS ORDERED: PATIENT'S OWN MEDICATION (NON-FORMULARY) (Alogliptin Benzoate [Alogliptin] 25 MG Tablet) PO SCH (10:00)
[2024-05-23 10:38] VITALS: BP 104/60; PULSE 82
== END 2024-05-23 13:33 | disposition home or self-care (01) | DRG 481 ==
LOC: JER 08:15 → JERBED 10:35 → J4S 16:17 → J6S 05-17 12:45
PROVIDERS: ADMIT Internal Medicine; ATTEND Internal Medicine
PROC: 0SSB04Z Reposition Left Hip Joint with Internal Fixation Device, Open Approach (ICD-10-PCS; principal; 2024-05-13 18:00)
DX: S72.142A Displaced intertrochanteric fracture of left femur, initial encounter for closed fracture (principal); D62 Acute posthemorrhagic anemia; I10 Essential (primary) hypertension; E11.9 Type 2 diabetes mellitus without complications; E03.9 Hypothyroidism, unspecified; I25.10 Atherosclerotic heart disease of native coronary artery without angina pectoris; Z79.84 Long term (current) use of oral hypoglycemic drugs; M79.605 Pain in left leg; M54.2 Cervicalgia; M85.80 Other specified disorders of bone density and structure, unspecified site; F41.9 Anxiety disorder, unspecified; R33.9 Retention of urine, unspecified; D69.6 Thrombocytopenia, unspecified; W19.XXXA Unspecified fall, initial encounter; Y93.9 Activity, unspecified; Y92.89 Other specified places as the place of occurrence of the external cause; Y99.9 Unspecified external cause status
CPT/HCPCS: 36415; 70450-TC; 71046-TC-FY; 72125-TC; 73552-TC-LT-FY; 76942; 80048; 80053; 81003; 82247; 82550; 82962; 83735; 84100; 84450; 84460; 84484; 85025; 85027; 85610; 85730; 86850; 86900; 86901; 87086; 93005; 93010; 93306-TC; 94760; 97116-GP; 97162-GP; 99285-25; C1713; J0131